=== PATIENT | female | born 1935 | race Caucasian/White ===

== ENCOUNTER 2017-04-11 08:19 | Emergency (ER) | payer MEDICARE, BC ==
[2017-04-11 08:52] VITALS: BP 164/84
--- NOTE | 2017-04-11 09:14 | UC ---
Respiratory Complaint HPI - HPI Summary HPI Summary: Pt c/o worsening nasal congestion, cough, chest congestion fever, chills X 2 weeks. - History of Current Complaint Chief Complaint: UCRespiratory Stated Complaint: COUGH Time Seen by Provider: 04/11/17 08:26 Hx Obtained From: Patient Hx Last Menstrual Period: n/a ?: No Onset/Duration: Gradual Onset, Lasting Weeks Timing: Constant Severity Initially: Mild Severity Currently: Moderate Pain Intensity: 6 Character: Cough: Nonproductive Aggravating Factors: Exertion, Deep Breaths, Recumbent Position Associated Signs And Symptoms: Positive: Fever, Chills, URI, Nasal Congestion - Risk Factors Pulmonary Embolism Risk Factors: Negative Cardiac Risk Factors: CAD Pseudomonas Risk Factors: Negative Tuberculosis Risk Factors: Negative - Allergies/Home Medications Allergies/Adverse Reactions: Allergies Allergy/AdvReac Type Severity Reaction Status Date / Time cephalexin Allergy Severe hives, Verified 04/11/17 08:35 nausea, weakness MS Penicillins [PCN] Allergy Rash Verified 04/11/17 08:32 Home Medications: Home Medications Acetaminophen [Tylophen] 500 mg PO PRN 04/11/17 [History] Anastrozole (NF) [Arimidex (NF)] 1 mg PO DAILY 04/11/17 [History Confirmed 04/11] Calcium Carbonate/Vitamin D3 [Calcium 1,000 + D3 Caplet] 1 tab PO 04/11/17 [ History] Chlorphenir/Phenyleph/Aspirin [Ema[place] Plus Cold Tab Eff] 1 tab PO PRN 01/16 [History] Cyanocobalamin (Vitamin B-12) [Vitamin B-12] 1,000 mcg PO 04/11/17 [History] Metoprolol Tartrate TAB* [Lopressor TAB*] 12.5 mg PO DAILY 04/11/17 [History Confirmed 04/11/17] [place]-3 Fatty Acids/Fish Oil [[place] 3 1,000 mg Softgel] 1 cap PO 04/11/17 [ History] Rivaroxaban TAB(*) [Xarelto 15 mg(*)] 15 mg PO DAILY 04/11/17 [History Confirmed 04/11/17] diPHENhydraMINE PO* [Benadryl PO 25 MG TAB*] 25 mg PO Q6H PRN 04/11/17 [History Confirmed 04/11/17] PMH/Surg Hx/FS Hx/Imm Hx Previously Healthy: Yes Cardiovascular History: Cardiac Disease, Other - A fib, had ablation in January 2017 Other Cardiovascular History: A-Fib - Surgical History Surgical History: Yes Surgery Procedure, Year, and Place: Left breast mastectomy 1988. Right breast mastectomy 2015. T&A. NASAL SURGERY - Family History Known Family History: Positive: Cardiac Disease, Other - breast cancer, maternal side, daughter - Social History Occupation: Retired Lives: With Family Alcohol Use: Rare Substance Use Type: None Smoking Status (MU): Never Smoked Tobacco Have You Smoked in the Last Year: No Review of Systems Constitutional: Fever, Chills, Fatigue Skin: Negative Eyes: Negative ENT: Sinus Congestion Respiratory: Cough Cardiovascular: Negative Gastrointestinal: Negative Genitourinary: Negative Motor: Negative, Decreased ROM Neurovascular: Negative Musculoskeletal: Myalgia Neurological: Headache Psychological: Negative Is Patient Immunocompromised?: No All Other Systems Reviewed And Are Negative: Yes Physical Exam Triage Information Reviewed: Yes Appearance: Ill-Appearing Vital Signs: Initial Vital Signs Temp 99.4 F 04/11/17 08:41 Pulse 84 04/11/17 08:41 Resp 20 04/11/17 08:41 BP 164/84 04/11/17 08:41 Pulse Ox 99 04/11/17 08:41 Vital Signs Reviewed: Yes Eye Exam: Normal ENT Exam: Other ENT: Positive: Nasal congestion Dental Exam: Normal Neck exam: Normal Respiratory Exam: Other Respiratory: Positive: Decreased breath sounds - bases bilateral Cardiovascular Exam: Normal Cardiovascular: Positive: RRR Musculoskeletal Exam: Normal Neurological Exam: Normal Psychological Exam: Normal Skin Exam: Normal Diagnostic Evaluation - Laboratory O2 Sat by Pulse Oximetry: 99 Respiratory Course/Dx - Differential Dx/Diagnosis Differential Diagnosis/HQI/PQRI: Bronchitis, Influenza, Other - pneumonia Provider Diagnoses: bronchitis Discharge - Discharge Plan Condition: Stable Disposition: HOME Prescriptions: Benzonatate CAP* [Tessalon 100 MG CAP*] 100 mg PO Q8H PRN #21 cap PRN Reason: Cough DOXYcycline CAP(*) [DOXYcycline 100MG CAP(*)] 100 mg PO Q12H #20 cap methylPREDNISolone TAB* [Medrol TAB*] 4 - 8 mg PO .SEE HARPER #1 harper Patient Education Materials: Acute Bronchitis (ED) Referrals: [facility] [Outside] Non Staff,Doctor [Primary Care Provider] - Additional Instructions: Please follow up with your PCP or return to clinic as needed.
== END 2017-04-11 09:47 | disposition home or self-care (01) ==
LOC: UCCORT 08:19
DX: J40 Bronchitis, not specified as acute or chronic (principal); I51.9 Heart disease, unspecified; I48.91 Unspecified atrial fibrillation
CPT/HCPCS: 87502; 99212; G0463